=== PATIENT | female | born 1985 | race Caucasian/White ===

== ENCOUNTER 2017-03-30 14:14 | Emergency (ER) ==
[2017-03-30 14:23] VITALS: BP 131/65; BMI 28.3
--- NOTE | 2017-03-30 14:44 | ED.PDOC ---
General ED Provider: Dr. 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 HAS BEEN HURTING OFF AND ON FOR AWHILE BUT LAST 3 DAYS HAS BEEN WORSE CONSTANT PAIN [ End ]3 days 100.2 73 22 97% 131.65 05/13. JORGE GORDON BEN GAY Time Seen by Physician: 14:43 Mode of Arrival: Walk-In Information Source: Patient Exam Limitations: No limitations Nursing and Triage Documentation Reviewed and Agree: No Review of Systems - Review Of Systems Constitutional: Reports: No symptoms Eyes: Reports: No symptoms Ears, Nose, Mouth, Throat: Reports: No symptoms Respiratory: Reports: No symptoms Cardiac: Reports: No symptoms GI: Reports: No symptoms : Reports: No symptoms Musculoskeletal: Reports: Joint pain, Muscle pain, Other (pain in right wrist involving thumb and next two fingers previously helped to shake hand) Skin: Reports: No symptoms Neurological: Reports: Numbness, Weakness Endocrine: Reports: No symptoms Hematologic/Lymphatic: Reports: No symptoms All Other Systems: Other Past Medical History - Past Medical History Endocrine: Reports: None Cardiovascular: Reports: None Respiratory: Reports: None Hematological: Reports: None Gastrointestinal: Reports: None Genitourinary: Reports: None Neuro/Psych: Reports: None Musculoskeletal: Reports: None Cancer: Reports: None Last Menstrual Period: 1-2 DAYS LATE - Surgical History General Surgical History: Reports: Tubal ligation, (C SECTIONX2), Orthopedic (LEFT HAND, C SECTIONX2, TUBAL ) - Family History Family History: Reports: Unknown - Social History Smoking Status: Current every day smoker, Light tobacco smoker Hx Substance Use: No Alcohol Screening: None Physical Exam - Physical Exam Appearance: Well-appearing, Thin Pain Distress: Moderate Eyes: CHARANJIT, EOMI, Conjunctiva clear ENT: Ears normal, Nose normal, Oropharynx normal Neck: Supple Respiratory: Airway patent, Breath sounds clear, Breath sounds equal, Respirations nonlabored Cardiovascular: RRR, Pulses normal, No rub, No murmur GI/: Soft, Nontender, No masses, Bowel sounds normal, No Organomegaly Musculoskeletal: Normal strength, ROM intact, No edema, No calf tenderness ( tender right wrist without skin changes) Skin: Warm, Dry, Normal color Neurological: Sensation intact, Motor intact, Reflexes intact, Cranial nerves intact, Alert, Oriented Psychiatric: Affect appropriate, Mood appropriate Re-Evaluation - Re-Evaluation Time of Re-Evaluation: 15:07 Status: Unchanged (note low grade fever without associated symptoms) Critical Care Note - Critical Care Note Total Time (mins): 0 Course - Course Orders, Labs, Meds: Orders Category Date Time Status Splint [ED SPLINT APPLICATION] .ONCE EMERGENCY 03/30/17 14:43 Active Hydrocodone Bit/Acetaminophen [[place] 7.5-325] MEDS 03/30/17 14:45 Discontinued 1 tab PO ONCE STA Medications Discontinued Medications Generic Name Dose Route Start Last Admin Trade Name Freq PRN Reason Stop Dose Admin Acetaminophen/Hydrocodone Bitart 1 tab 03/30/17 14:45 03/30/17 14:58 [place] 7.5-325 PO 03/30/17 14:46 1 tab ONCE STA Administration Vital Signs: Temp Pulse Resp BP Pulse Ox 03/30/17 14:14 100.2 F H 73 22 131/65 97 Departure - Departure Time of Disposition: 15:00 Disposition: HOME SELF-CARE Discharge Problem: Pain in wrist, Carpal tunnel syndrome of right wrist Instructions: Wrist Injury (ED), Tenosynovitis (ED) Condition: Fair Pt referred to PMD for follow-up: Yes Additional Instructions: try cock up splint, at work but especially at night follow up PMD consider orthopedic consult no refills on pain medication may use norco with ibuprofen best source of experts for treatment is workplace-consider occupational physician referral Prescriptions: Hydrocodone Bit/Acetaminophen [[place] 5-325] 1 - 2 tab PO Q6HR PRN #20 tablet PRN Reason: pain Allergies/Adverse Reactions: Allergies No Known Allergies Allergy (Verified 03/30/17 14:18) Home Medications: Ambulatory Orders Hydrocodone Bit/Acetaminophen [[place] 5-325] 1 - 2 tab PO Q6HR PRN #20 tablet
[2017-03-30] MEDS ORDERED: NORCO 7.5-325 PO STA (14:45)
[2017-03-30 15:09] VITALS: TEMP 98.1
== END 2017-03-30 15:13 | disposition home or self-care (01) ==
LOC: ED 14:14
DX: G56.01 Carpal tunnel syndrome, right upper limb (principal); R50.9 Fever, unspecified; F17.210 Nicotine dependence, cigarettes, uncomplicated
CPT/HCPCS: 99282

== ENCOUNTER 2017-08-25 13:26 | Emergency (ER) ==
[2017-08-25 13:43] VITALS: BP 107/71; TEMP 98.9; BMI 26.1
--- NOTE | 2017-08-25 14:03 | ED.PDOC ---
General ED Provider: Dr. GABE ESCALANTE Chief Complaint: Finger Laceration Stated Complaint: finger laceration Time Seen by Physician: 13:30 (seen with [facility]) Mode of Arrival: Walk-In Information Source: Patient Exam Limitations: No limitations Referred to ED by: Other (LEFT 4TH FINGER ) Nursing and Triage Documentation Reviewed and Agree: Yes Reviewed sepsis parameters & appropriate labs ordered?: Yes (PHOTOS SUBMITTED ) System Inflammatory Response Syndrome: Not Applicable Sepsis Protocol: For patient's 13 years and over: Temp is 96.8 and below OR 101 and greater Pulse >90 BPM Resp >20/minute Acutely Altered Mental Status Are patient's symptoms suggestive of a new infection, such as: -Pneumonia -Skin, Soft Tissue -Endocarditis -UTI -Bone, Joint Infection -Implantable Device -Acute Abdominal Infection -Wound Infection -Meningitis -Blood Stream Catheter Infection -Unknown System Inflammatory Response Syndrome: Not Applicable Review of Systems - Review Of Systems Constitutional: Reports: No symptoms Eyes: Reports: No symptoms Ears, Nose, Mouth, Throat: Reports: No symptoms Respiratory: Reports: No symptoms Cardiac: Reports: No symptoms GI: Reports: No symptoms : Reports: No symptoms Musculoskeletal: Reports: Other (LACERATION FINGER SEE PHOTOS) Skin: Reports: No symptoms Neurological: Reports: No symptoms Endocrine: Reports: No symptoms Hematologic/Lymphatic: Reports: No symptoms All Other Systems: Reviewed and Negative Past Medical History - Past Medical History Previously Healthy: Yes Endocrine: Reports: None Cardiovascular: Reports: None Respiratory: Reports: None Hematological: Reports: None Gastrointestinal: Reports: None Genitourinary: Reports: None Neuro/Psych: Reports: None Musculoskeletal: Reports: None Cancer: Reports: None Last Menstrual Period: 08/04/17 - Surgical History General Surgical History: Reports: Tubal ligation, (C SECTIONX2), Orthopedic (LEFT HAND, C SECTIONX2, TUBAL ) - Family History Family History: Reports: Unknown - Social History Smoking Status: Current every day smoker, Light tobacco smoker Hx Substance Use: No Alcohol Screening: None - Immunizations Tetanus Shot up to Date: (unknown) Physical Exam - Physical Exam Appearance: Well-appearing, No pain distress, Well-nourished Eyes: CHARANJIT, EOMI, Conjunctiva clear ENT: Ears normal, Nose normal, Oropharynx normal Respiratory: Airway patent, Breath sounds clear, Breath sounds equal, Respirations nonlabored Cardiovascular: RRR, Pulses normal, No rub, No murmur GI/: Soft, Nontender, No masses, Bowel sounds normal, No Organomegaly Musculoskeletal: Normal strength (LEFT 4TH FINGER DISTAL PALMAR SIDE 4 MM LACERATION 1MM DEEP NO F/B) Skin: Warm, Dry, Normal color Neurological: Sensation intact, Motor intact, Reflexes intact, Cranial nerves intact, Alert, Oriented Psychiatric: Affect appropriate, Mood appropriate Critical Care Note - Critical Care Note Total Time (mins): 0 Course - Course Vital Signs: Temp Pulse Resp BP Pulse Ox 08/25/17 13:27 98.9 F 73 20 107/71 98 Departure - Departure Time of Disposition: 14:03 (FINGER DERMABONDED ) Disposition: HOME SELF-CARE Discharge Problem: Laceration of finger Instructions: Laceration (ED), Skin Adhesive Care (ED) Condition: Good Pt referred to PMD for follow-up: Yes IPMP verified?: Yes Allergies/Adverse Reactions: Allergies No Known Allergies Allergy (Verified 08/25/17 13:38) Home Medications: Ambulatory Orders 1 [No Reported Medications] 08/25/17 Disposition Discussed With: Patient, Family
[2017-08-25] MEDS ORDERED: TENIVAC IM ONE (14:04)
[2017-08-25] MEDS ORDERED: TETANUS DIPHTHERIA TOXOIDS IM ONE (14:15)
== END 2017-08-25 14:35 | disposition home or self-care (01) ==
LOC: ED 13:26
DX: S61.215A Laceration without foreign body of left ring finger without damage to nail, initial encounter (principal); W45.8XXA Other foreign body or object entering through skin, initial encounter; F17.210 Nicotine dependence, cigarettes, uncomplicated
CPT/HCPCS: 90471; 90714; 99283

== ENCOUNTER 2018-02-20 16:14 | Emergency (ER) ==
[2018-02-20 16:28] VITALS: BP 125/81; TEMP 99; BMI 28.5
[2018-02-20] MEDS ORDERED: NORCO 10-325 PO STA (16:31)
[2018-02-20] MEDS ORDERED: ZOFRAN 4 MG/2 ML IM STA (16:36)
[2018-02-20] MEDS ORDERED: MORPHINE 4 MG/ML SYRINGE IM STA (16:36)
--- NOTE | 2018-02-20 16:59 | CT ---
EXAM: CT of the cervical spine without contrast History: Neck pain. Technique: Multiplanar CT images through the cervical spine were obtained without the administration of IV contrast Findings: Visualized upper lungs are free of consolidation. Visualized airway remains patent. Reve rsal of the normal cervical lordosis. No prevertebral soft tissue swelling. Predental space is not widened. Disc space heights are preserved. Bony spinal canal is not compromised. No significant [place] neural foraminal narrowing. Impression: 1. No acute osseous abnormality of the cervical spine and no significant degenerative changes. 2. Reversal of the normal cervical lordosis.
--- NOTE | 2018-02-20 17:26 | ED.PDOC ---
General ED Provider: Dr. GABE ESCALANTE Chief Complaint: Neck Injury Stated Complaint: NECK PAIN Time Seen by Physician: 16:20 (INJURY 1 DAY AGO) Mode of Arrival: Walk-In Information Source: Patient Exam Limitations: No limitations Primary Care Provider: BRENNEN HEAD Nursing and Triage Documentation Reviewed and Agree: Yes (ELIEL PRESET AT ALL TIMES ) Does patient meet sepsis criteria?: No If yes, has appropriate treatment been initiated?: No System Inflammatory Response Syndrome: Not Applicable Sepsis Protocol: For patient's 13 years and over: Temp is 96.8 and below OR 101 and greater Pulse >90 BPM Resp >20/minute Acutely Altered Mental Status Are patient's symptoms suggestive of a new infection, such as: -Pneumonia -Skin, Soft Tissue -Endocarditis -UTI -Bone, Joint Infection -Implantable Device -Acute Abdominal Infection -Wound Infection -Meningitis -Blood Stream Catheter Infection -Unknown Musculoskeletal Complaint Exam - Neck Pain Complaint/Exam Mechanism of Injury: Reports: Trauma Onset/Duration: 1 DAY Symptoms Are: Still present Timing: Constant Episodes Lasting: Hours Initial Severity: Moderate Current Severity: Moderate Location: Reports: Discrete Character: Reports: Aching Aggravating: Reports: Position Alleviating: Reports: Position Associated Signs and Symptoms: Denies: Swelling, Redness, Bruising, Fever, Nuchal rigidity, Weakness, Headache, Paresthesia Meningitis Risk Factors: Reports: None Related Surgical History: Reports: None Carotid Bruit Present: No Pain on Passive Flexion: No Positive Kernig's Sign: No ROM Limited In: Present: Right, Left, Side bending Tenderness: Present: Midline Radiates to: Absent: Right arm, Left arm Focal Weakness: Present: None Focal Sensory Loss: Reports: None Nexus Low Risk Criteria: No evidence of intoxicat., No Altered LOC, No distracting injuries Differential Diagnoses: Cervical Fracture, Sprain, Strain Review of Systems - Review Of Systems Constitutional: Reports: No symptoms Eyes: Reports: No symptoms Ears, Nose, Mouth, Throat: Reports: No symptoms Respiratory: Reports: No symptoms Cardiac: Reports: No symptoms GI: Reports: No symptoms : Reports: No symptoms Musculoskeletal: Reports: Neck pain Skin: Reports: No symptoms Neurological: Reports: No symptoms Endocrine: Reports: No symptoms Hematologic/Lymphatic: Reports: No symptoms All Other Systems: Reviewed and Negative Past Medical History - Past Medical History Previously Healthy: Yes Endocrine: Reports: None Cardiovascular: Reports: None Respiratory: Reports: None Hematological: Reports: None Gastrointestinal: Reports: None Genitourinary: Reports: None Neuro/Psych: Reports: None Musculoskeletal: Reports: None Cancer: Reports: None Last Menstrual Period: now - Surgical History General Surgical History: Reports: Tubal ligation, (C SECTIONX2), Orthopedic (LEFT HAND, C SECTIONX2, TUBAL ) - Family History Family History: Reports: Unknown - Social History Smoking Status: Former smoker Hx Substance Use: No Alcohol Screening: None Physical Exam - Physical Exam Appearance: Well-appearing, No pain distress, Well-nourished Eyes: CHARANJIT, EOMI, Conjunctiva clear ENT: Ears normal, Nose normal, Oropharynx normal Respiratory: Airway patent, Breath sounds clear, Breath sounds equal, Respirations nonlabored Cardiovascular: RRR, Pulses normal, No rub, No murmur GI/: Soft, Nontender, No masses, Bowel sounds normal, No Organomegaly Musculoskeletal: Normal strength, ROM intact, No edema, No calf tenderness Skin: Warm, Dry, Normal color Neurological: Sensation intact, Motor intact, Reflexes intact, Cranial nerves intact, Alert, Oriented Psychiatric: Affect appropriate, Mood appropriate Interpretation - Radiology Interpretation Radiology Interpretation By: Radiologist Radiology Results: No acute changes Critical Care Note - Critical Care Note Total Time (mins): 0 Course - Course Orders, Labs, Meds: Orders Category Date Time Status Morphine Sulfate [Morphine 4 mg/ml Syringe] MEDS 02/20/18 16:36 Discontinued 4 mg IM ONCE STA Ondansetron HCl/Pf [Zofran 4 mg/2 ml] MEDS 02/20/18 16:36 Discontinued 4 mg IM ONCE STA CT CERVICAL SPINE W/O CONTRAST Stat RADS 02/20/18 16:31 Completed Medications Discontinued Medications Generic Name Dose Route Start Last Admin Trade Name Freq PRN Reason Stop Dose Admin Morphine Sulfate 4 mg 02/20/18 16:36 02/20/18 17:14 Morphine 4 Mg/Ml Syringe IM 02/20/18 16:37 4 mg ONCE STA Administration Ondansetron HCl 4 mg 02/20/18 16:36 02/20/18 17:13 Zofran 4 Mg/2 Ml IM 02/20/18 16:37 4 mg ONCE STA Administration Vital Signs: Temp Pulse Resp BP Pulse Ox 02/20/18 16:15 99.0 F 67 18 125/81 98 Departure - Departure Time of Disposition: 17:25 Disposition: HOME SELF-CARE Discharge Problem: Neck pain, Injury of neck Instructions: Cervical Sprain (ED), Acute Neck Pain (ED) Condition: Good Pt referred to PMD for follow-up: Yes IPMP verified?: No Additional Instructions: Please call your Family Physician as soon as possible to schedule a follow-up appointment. Allergies/Adverse Reactions: Allergies No Known Allergies Allergy (Verified 02/20/18 16:27) Home Medications: Ambulatory Orders 1 [No Reported Medications] 08/25/17 Disposition Discussed With: Patient, Family
== END 2018-02-20 17:35 | disposition home or self-care (01) ==
LOC: ED 16:14
DX: M54.2 Cervicalgia (principal)
CPT/HCPCS: 96372; 99283

== ENCOUNTER 2018-08-28 09:19 | Emergency (ER) | payer OTHER ==
[2018-08-28 09:33] VITALS: BP 123/76; TEMP 98.1; BMI 27.7
--- NOTE | 2018-08-28 11:24 | US ---
EXAM: PELVIC ULTRASOUND COMPLETE HISTORY: Pelvic pain FINDINGS: Ultrasound pelvis transvaginal. Transvaginal approach imaging was performed for improved resolution and anatomic definition. ) The uterus measured 10.6 x 5.2 centimeters. Uterine orientation was retroverted. The myometrium was heterogeneous with no defined solid masses. The endometrial stripe thickness was symmetric and normal thickness at 0.93 cm. The right ovary measured 3.6 x 2.6 x 2.5 cm and the left ovary 2.9 x 1.9 x 2.0 cm. Ovaries demonstrat ed adequate blood flow and scattered small follicles. Trace amount of simple pelvic ascites. IMPRESSION: 1. Findings within normal limits sonographically.
[2018-08-28] MEDS ORDERED: LIDOCAINE HCL 1% SDV IM STA (11:27)
[2018-08-28] MEDS ORDERED: ZITHROMAX PO STA (11:27)
[2018-08-28] MEDS ORDERED: ROCEPHIN IM STA (11:27)
--- NOTE | 2018-08-28 11:28 | CT ---
EXAM: CT abdomen pelvis without contrast HISTORY: Pain COMPARISON: None TECHNIQUE: CT abdomen pelvis performed without intravenous contrast. Coronal and sagittal reformatt ed images obtained. FINDINGS: Lung bases clear. No free air. No acute abnormalities of the bones. Heart normal in siz e. Evaluation organ parenchyma limited without contrast. Liver appears normal. Patient status post cholecystectomy. Pancreas unremarkable. Spleen unremarkable. Adrenals unremarkable. Kidneys unrem arkable without hydronephrosis or nephrolithiasis. No calculi visualized in the normal course of the ureters. Bladder unremarkable. Uterus unremarkable. Aorta normal in caliber. Trace free fluid in the cul-de-sac. Abundant normal/top normal sized lymph nodes in the central abdomen. Stomach appea rs normal. No dilated loops small bowel. Appendix appears normal. Colon unremarkable. IMPRESSION: 1. No bowel or urinary obstruction. Normal appendix. 2. Abundant normal/top normal sized mesenteric lymph nodes, nonspecific and could relate to mild mes enteric adenitis or reactive from mild enteritis. 3. Trace free fluid in the cul-de-sac, nonspecific and may be physiologic.
--- NOTE | 2018-08-28 11:31 | ED.PDOC ---
General ED Provider: Dr. GABE ESCALANTE Chief Complaint: Abdominal Pain Stated Complaint: abdominal pain vaginal discharge Time Seen by Physician: 09:20 (seen with [facility] GUSTABO STOCKTON AT ALL TIMES ) Mode of Arrival: Walk-In Information Source: Patient Exam Limitations: No limitations Primary Care Provider: LANE BASURTO Nursing and Triage Documentation Reviewed and Agree: Yes Does patient meet sepsis criteria?: No System Inflammatory Response Syndrome: Not Applicable Sepsis Protocol: For patient's 13 years and over: Temp is 96.8 and below OR 101 and greater Pulse >90 BPM Resp >20/minute Acutely Altered Mental Status Are patient's symptoms suggestive of a new infection, such as: -Pneumonia -Skin, Soft Tissue -Endocarditis -UTI -Bone, Joint Infection -Implantable Device -Acute Abdominal Infection -Wound Infection -Meningitis -Blood Stream Catheter Infection -Unknown GI Complaint Exam - Abdominal Pain Complaint/Exam Onset: Gradual Duration: 1 week Symptoms Are: Still present Timing: Intermittent Initial Severity: Moderate Current Severity: None Location of Pain: Diffuse Character: Reports: Aching Aggravating: Reports: None Alleviating: Reports: None Associated Signs and Symptoms: Reports: Dysuria (vaginal discharge) AAA Risk Factors: Reports: None Cardiac Risk Factors: Reports: None Ectopic Risk Factors: Reports: None Ovarian Torsion Risk Factors: Reports: None Surgical Obstruction Risk Factors: Reports: None Related Surgical History: Reports: None Patient Rh Status: Unknown Abdominal Findings: Present: None Review of Systems - Review Of Systems Constitutional: Reports: No symptoms Eyes: Reports: No symptoms Ears, Nose, Mouth, Throat: Reports: No symptoms Respiratory: Reports: No symptoms Cardiac: Reports: No symptoms GI: Reports: No symptoms : Reports: Dysuria, Other (vaginal discharge) Musculoskeletal: Reports: No symptoms Skin: Reports: No symptoms Neurological: Reports: No symptoms Endocrine: Reports: No symptoms Hematologic/Lymphatic: Reports: No symptoms All Other Systems: Reviewed and Negative Past Medical History - Past Medical History Previously Healthy: Yes Endocrine: Reports: None Cardiovascular: Reports: None Respiratory: Reports: None Hematological: Reports: None Gastrointestinal: Reports: None Genitourinary: Reports: None Neuro/Psych: Reports: None Musculoskeletal: Reports: None Cancer: Reports: None Last Menstrual Period: 3 weeks - Surgical History General Surgical History: Reports: Tubal ligation, (C SECTIONX2), Orthopedic (LEFT HAND, C SECTIONX2, TUBAL ) - Family History Family History: Reports: Unknown - Social History Smoking Status: Current every day smoker, Light tobacco smoker Hx Substance Use: No Alcohol Screening: Occasionally Physical Exam - Physical Exam Appearance: Well-appearing, No pain distress, Well-nourished Eyes: CHARANJIT, EOMI, Conjunctiva clear ENT: Ears normal, Nose normal, Oropharynx normal Respiratory: Airway patent, Breath sounds clear, Breath sounds equal, Respirations nonlabored Cardiovascular: RRR, Pulses normal, No rub, No murmur GI/: Soft, Nontender, No masses, Bowel sounds normal, No Organomegaly Musculoskeletal: Normal strength, ROM intact, No edema, No calf tenderness Skin: Warm, Dry, Normal color Neurological: Sensation intact, Motor intact, Reflexes intact, Cranial nerves intact, Alert, Oriented Psychiatric: Affect appropriate, Mood appropriate Interpretation - Radiology Interpretation Radiology Interpretation By: Radiologist Radiology Results: No acute changes Critical Care Note - Critical Care Note Total Time (mins): 0 Course - Course Hematology/Chemistry: 08/28/18 10:00 08/28/18 10:00 Orders, Labs, Meds: Lab Review 08/28/18 08/28/18 08/28/18 10:00 10:00 10:00 WBC 6.95 RBC 4.25 Hgb 12.2 Hct 36.5 L MCV 85.9 MCH 28.7 MCHC 33.4 RDW Coeff of Raheem 13.4 Plt Count 239 Neutrophils % (Manual) 52.0 Band Neutrophils % 1.0 Lymphocytes % (Manual) 26.0 Monocytes % (Manual) 6.0 Eosinophils % (Manual) 7.0 H Reactive Lymphocytes 8.0 H Anisocytosis Not present Sodium 140.4 Potassium 3.94 Chloride 104.2 Carbon Dioxide 28.0 Anion Gap 12.14 BUN 11.9 Creatinine 0.65 Estimated GFR (MDRD) 107.00 BUN/Creatinine Ratio 18.30 Glucose 82.7 Calcium 9.02 Total Bilirubin 0.37 AST 19.3 ALT 14.3 Alkaline Phosphatase 76.6 Total Protein 6.92 Albumin 4.15 Globulin 2.77 Albumin/Globulin Ratio 1.49 Amylase 64.6 Lipase 75.3 Serum , Qual Urine Color Yellow Urine Clarity Clear Urine pH 7.0 Ur Specific [place] 1.020 Urine Protein Negative Urine Glucose (UA) Negative Urine Ketones Negative Urine Blood Negative Urine Nitrite Negative Urine Bilirubin Negative Urine Urobilinogen 0.2 Ur Leukocyte Esterase Trace Urine Microscopic WBC 0-2 Ur Squamous Epith Cells 0-2 08/28/18 10:00 WBC RBC Hgb Hct MCV MCH MCHC RDW Coeff of Raheem Plt Count Neutrophils % (Manual) Band Neutrophils % Lymphocytes % (Manual) Monocytes % (Manual) Eosinophils % (Manual) Reactive Lymphocytes Anisocytosis Sodium Potassium Chloride Carbon Dioxide Anion Gap BUN Creatinine Estimated GFR (MDRD) BUN/Creatinine Ratio Glucose Calcium Total Bilirubin AST ALT Alkaline Phosphatase Total Protein Albumin Globulin Albumin/Globulin Ratio Amylase Lipase Serum , Qual Negative Urine Color Urine Clarity Urine pH Ur Specific [place] Urine Protein Urine Glucose (UA) Urine Ketones Urine Blood Urine Nitrite Urine Bilirubin Urine Urobilinogen Ur Leukocyte Esterase Urine Microscopic WBC Ur Squamous Epith Cells Orders Category Date Time Status AMYLASE Stat LAB 08/28/18 10:00 Completed CBC W/ AUTO DIFF Stat LAB 08/28/18 10:00 Completed COMPREHENSIVE METABOLIC PANEL Stat LAB 08/28/18 10:00 Completed LIPASE Stat LAB 08/28/18 10:00 Completed MANUAL DIFFERENTIAL Stat LAB 08/28/18 10:00 Completed SERUM Stat LAB 08/28/18 10:00 Completed URINALYSIS C & S IF INDICATED Stat LAB 08/28/18 10:00 Completed Azithromycin [Zithromax] MEDS 08/28/18 11:27 Stat 1,000 mg PO ONCE STA Ceftriaxone Sodium [Rocephin] MEDS 08/28/18 11:27 Stat 1 gm IM ONCE STA Lidocaine HCl/Pf [Lidocaine HCl 1% Sdv] MEDS 08/28/18 11:27 Stat 2.1 ml IM ONCE STA CT ABDOMEN/PELVIS WO CONTRAST Stat RADS 08/28/18 10:02 Ordered U/S PELVIS LOYD VAGINAL/NON OB Stat RADS 08/28/18 10:02 Completed Medications Discontinued Medications Generic Name Dose Route Start Last Admin Trade Name Freq PRN Reason Stop Dose Admin Azithromycin 1,000 mg 08/28/18 11:27 Zithromax PO 08/28/18 11:28 ONCE STA Ceftriaxone Sodium 1 gm 08/28/18 11:27 Rocephin IM 08/28/18 11:28 ONCE STA Lidocaine HCl 2.1 ml 08/28/18 11:27 Lidocaine Hcl 1% Sdv IM 08/28/18 11:28 ONCE STA Vital Signs: Temp Pulse Resp BP Pulse Ox 08/28/18 09:20 98.1 F 73 20 123/76 97 Departure - Departure Time of Disposition: 11:30 Disposition: HOME SELF-CARE Discharge Problem: Abdominal pain, Vaginal discharge Instructions: Chlamydia (ED), Safe Sex (ED), Abdominal Pain (ED) Condition: Good Pt referred to PMD for follow-up: Yes IPMP verified?: No Prescriptions: Metronidazole [Flagyl] 500 mg PO Q6HR #20 tablet Allergies/Adverse Reactions: Allergies No Known Allergies Allergy (Verified 08/28/18 09:33) Home Medications: Ambulatory Orders Metronidazole [Flagyl] 500 mg PO Q6HR #20 tablet 08/28/18 Disposition Discussed With: Patient
== END 2018-08-28 12:05 | disposition home or self-care (01) ==
LOC: ED 09:19
DX: R10.9 Unspecified abdominal pain (principal); N89.8 Other specified noninflammatory disorders of vagina; F17.210 Nicotine dependence, cigarettes, uncomplicated
CPT/HCPCS: 36415; 80053; 81001; 82150; 83690; 84703; 85007; 85025; 96372; 99283

== ENCOUNTER 2019-03-10 | Emergency (ER) | END 2019-03-10 12:22 | disposition home or self-care (01) | CPT/HCPCS: 99282 ==